=== PATIENT | male | born 1995 | race American Indian/Alaskan Native ===

== ENCOUNTER 2017-04-17 11:02 | Emergency (ER) | payer OTHER ==
[2017-04-17 11:52] VITALS: BMI 20.5
[2017-04-17 11:55] VITALS: RESP 18
--- NOTE | 2017-04-17 14:05 | ED PDOC ---
Arrival/HPI - General Chief Complaint: GI Problem Time Seen by Provider: 04/17/17 11:19 Historian: Patient - History of Present Illness Narrative History of Present Illness (Text): 04/17/17 14:02 CC: vomiting, food poisoning 22M presents with vomiting, and diarrhea starting about 11pm 04/16. Patient states he ate pasta with sour-tasting tomato sauce last night, went to bed and woke up, vomited multiple times, and had diarrhea x5 episodes. Patient denies fever, chills, hemoptysis, constipation, headache, dizziness, difficulty walking. PMH: none PSH: none Allergies: NKDA Past Medical History - Infectious Disease Hx of Infectious Diseases: None - Pulmonary Hx Asthma: Yes - Psychiatric Hx Psychophysiologic Disorder: No Hx Substance Use: Yes - Anesthesia Hx Anesthesia: No Family/Social History - Physician Review Nursing Documentation Reviewed: Yes Family/Social History: No Known Family HX Smoking Status: Never Smoked Hx Alcohol Use: No Hx Substance Use: Yes Substance used: marijuana Allergies/Home Meds Allergies/Adverse Reactions: Allergies No Known Allergies Allergy (Verified 04/17/17 11:52) Review of Systems - Physician Review All systems were reviewed & negative as marked: Yes - Review of Systems Constitutional: Normal. absent: Fatigue, Weight Change, Fevers, Night Sweats, Other Eyes: Normal. absent: Vision Changes, Photophobia, Eye Pain, Other ENT: Normal Respiratory: Normal. absent: SOB, Cough, Sputum, Wheezing, Other Cardiovascular: Normal. absent: Chest Pain, Palpitations, Edema, Calf Pain, BRADY , Orthopnea, SY, Syncope, Other Gastrointestinal: Abdominal Pain (midepigastric), Diarrhea, Other (denies constipation, hematochezia) Genitourinary Male: Normal Musculoskeletal: Normal Skin: Normal Neurological: Normal Endocrine: Normal, Other. absent: Diaphoresis, Polyuria, Polydipsia Hemo/Lymphatic: Normal. absent: Adenopathy, Easy Bleeding, Easy Bruising, Other Psychiatric: absent: Normal, Anxiety, Depression, Suicidal Ideation, Other Physical Exam Vital Signs Temp Pulse Resp BP Pulse Ox 04/17/17 13:12 57 L 18 107/60 98 04/17/17 11:54 98 F 60 18 122/73 100 Temperature: Afebrile Blood Pressure: Normal Pulse: Regular Respiratory Rate: Normal Appearance: Positive for: Comfortable Pain Distress: Mild Mental Status: Positive for: Alert and Oriented X 3 - Systems Exam Head: Present: Atraumatic, Normocephalic Pupils: Present: PERRL Extroacular Muscles: Present: EOMI Conjunctiva: Present: Injected Ears: Present: Normal. No: NORMAL TM, Erythema, Normal Canal, TM Bulging, Fluid , TM Perf, Other Mouth: Present: Dry Nose (Internal): Present: Normal Inspection Neck: Present: Normal Range of Motion. No: Meningeal Signs, MIDLINE TENDERNESS , Paraspinal Tenderness, JVD, Lymphadenopathy, Bruit, Trachea Midline, Other Respiratory/Chest: Present: Clear to Auscultation, Good Air Exchange. No: Respiratory Distress, Accessory Muscle Use, Wheezes, Decreased Breath Sounds, Rales, Retracting, Rhonchi, Tachypneic, Tender to Palpation Cardiovascular: Present: Regular Rate and Rhythm, Normal S1, S2 Abdomen: Present: Tenderness. No: Distention, Normal Bowel Sounds, Peritoneal Signs, Rebound, Guarding, McBurney's Point Tender, Rovsing's Sign Present, Hernias, Feeding Tubes, Ostomy Tubes, Mass/Organomegaly, Scars Back: Present: Normal Inspection Upper Extremity: Present: Normal Inspection, Normal ROM, NORMAL PULSES, Capillary Refill < 2s. No: Cyanosis, Edema, Tenderness, Swelling, Erythema, Temperature Abnormalties, Deformity, Norm 2-Pt Discrimination, Other Lower Extremity: Present: Normal Inspection, NORMAL PULSES, Normal ROM, Capillary Refill < 2 s Neurological: Present: GCS=15, CN II-XII Intact, Speech Normal Skin: Present: Dry, Normal Color Psychiatric: Present: Alert, Oriented x 3 Medical Decision Making ED Course and Treatment: 04/17/17 14:04 Zofran and PO fluid intake monitoring. Patient tolerated well after Zofran Re-evaluation Time: 14:10 Reassessment Condition: Re-examined, Improved - Medication Orders Current Medication Orders: Discontinued Medications Ondansetron HCl (Zofran Odt) 8 mg PO STAT STA Stop: 04/17/17 12:38 Last Admin: 04/17/17 13:03 Dose: 8 mg Disposition/Present on Arrival - Present on Arrival Any Indicators Present on Arrival: No History of DVT/PE: No History of Uncontrolled Diabetes: No Urinary Catheter: No History of Decub. Ulcer: No History Surgical Site Infection Following: None - Disposition Have Diagnosis and Disposition been Completed?: Yes Diagnosis: Food poisoning Disposition: HOME/ ROUTINE Disposition Time: 14:23 Patient Plan: Discharge Patient Problems: Current Active Problems Problem Status Onset Food poisoning Acute Condition: FAIR Additional Instructions: take zofran as needed for nausea stay hydrated. Drink water, drinks with electrolytes and continue eating normally as tolerated Prescriptions: Ondansetron ODT [Zofran ODT] 8 mg PO Q6H PRN #20 odt PRN Reason: Nausea/Vomiting Referrals: PCP,NO [Primary Care Provider] - Follow up with primary Forms: [employer] (Armenian)
[2017-04-17 15:34] VITALS: BP 108/52; PULSE 68; TEMP 98; O2SAT 99
== END 2017-04-17 15:34 | disposition home or self-care (01) ==
LOC: ED 11:02
DX: T62.91XA Toxic effect of unspecified noxious substance eaten as food, accidental (unintentional), initial encounter (principal); K52.1 Toxic gastroenteritis and colitis